=== PATIENT | male | born 1960 | race African-American/Black ===

== ENCOUNTER 2021-07-06 06:48 | Observation (INO) ==
[2021-07-06] MEDS ORDERED: DIAZEPAM 5 MG TABLET PO ONE (08:36)
[2021-07-06 08:49] LABS: Basophils % 0.5 % (0.0-0.8); Eosinophils # 0.1 10*3/uL (0.0-0.87); Eosinophils % 1.9 % (0.00-10.9); Hematocrit 35.5 VOL% (42.0-52.0); Hemoglobin 11.5 GM/DL (14.0-18.0); Immature Granulocytes % 0.3 %; Immature Granulocytes Absolute 0.02 #; Lymphocytes # 1.6 10*3/uL (1.4-4.0); Lymphocytes % 25.2 % (21.2-54.2); Mean Corpuscular HGB Conc 32.4 GM/DL (32-36); Mean Corpuscular Volume 89.9 FL (87-102); Monocytes % 7.7 % (1.7-12.7); Neutrophils % 64.4 % (38.7-73.9); Platelet Count 181 T/CUMM (130-400); Red Blood Count 3.95 MC/CUMM (3.8-5.5); Red Cell Distribution Width 13.8 % (9.3-17.3); White Blood Count 6.3 T/CUMM (4-12)
[2021-07-06] MEDS ORDERED: SODIUM CHLORIDE 0.45% 1,000 ML IV SCH (09:00)
[2021-07-06 09:07] LABS: PT Patient Result 11.3 SECS (10.5-12.0)
[2021-07-06 13:41] LABS: Basophils % 0.3 % (0.0-0.8); Eosinophils # 0.1 10*3/uL (0.0-0.87); Eosinophils % 0.6 % (0.00-10.9); Hematocrit 36.4 VOL% (42.0-52.0); Hemoglobin 11.9 GM/DL (14.0-18.0); Immature Granulocytes % 0.4 %; Immature Granulocytes Absolute 0.04 #; Lymphocytes # 1.6 10*3/uL (1.4-4.0); Lymphocytes % 15.6 % (21.2-54.2); Mean Corpuscular HGB Conc 32.7 GM/DL (32-36); Mean Corpuscular Volume 90.1 FL (87-102); Mean Platelet Volume 9.8 FL (9.6-12.0); Monocytes % 4.4 % (1.7-12.7); Neutrophils % 78.7 % (38.7-73.9); Platelet Count 186 T/CUMM (130-400); Red Blood Count 4.04 MC/CUMM (3.8-5.5); Red Cell Distribution Width 13.7 % (9.3-17.3)
[2021-07-06] MEDS ORDERED: LIDOCAINE 2% TOP JELLY 20 ML VIAL INTRAURETH ONE (14:55)
[2021-07-06] MEDS ORDERED: FLUTICASONE 50 MCG NASAL SPRAY 16 GM BOTTLE BOTH NARES PRN (14:56)
[2021-07-06 15:56] LABS: Alanine Aminotransferase 38 U/L (16-61); Alkaline Phosphatase 73 U/L (45-117); Aspartate Amino Transferase 40 U/L (0-37); Bilirubin,Total < 0.39 MG/DL (0.20-1.00); Blood Urea Nitrogen 21 MG/DL (7-18); Calcium 8.7 MG/DL (8.5-10.1); Carbon Dioxide 27 MMOL/L (21-32); Estimated Glom Filtration Rate 106 ML/MIN; Glucose 140 MG/DL (74-106); Osmolality,Calculated 281.5 MOS/KG (273-304); Potassium 3.9 MMOL/L (3.5-5.1); Sodium 139 MMOL/L (136-145); Total Protein 6.9 G/DL (6.4-8.2)
[2021-07-06] MEDS ORDERED: MEPERIDINE 50 MG/1 ML VIAL IM PRN (18:04)
[2021-07-06] MEDS: SODIUM CHLORIDE 0.45% 1,000 ML IV SCH (21:45)
[2021-07-06] MEDS: FLECAINIDE 50 MG TABLET PO SCH (21:45)
[2021-07-07] MEDS: CLOTRIMAZOLE/BETAMETHASONE CREAM 15 GM TUBE TOP SCH ×3 (01:00→20:58)
[2021-07-07 05:12] LABS: Basophils % 0.1 % (0.0-0.8); Eosinophils % 0.1 % (0.00-10.9); Hematocrit 32.7 VOL% (42.0-52.0); Hemoglobin 10.5 GM/DL (14.0-18.0); Immature Granulocytes % 0.2 %; Immature Granulocytes Absolute 0.02 #; Lymphocytes # 1.4 10*3/uL (1.4-4.0); Lymphocytes % 15.7 % (21.2-54.2); Mean Corpuscular HGB Conc 32.1 GM/DL (32-36); Mean Corpuscular Volume 89.6 FL (87-102); Mean Platelet Volume 10.5 FL (9.6-12.0); Monocytes % 7.1 % (1.7-12.7); Neutrophils % 76.8 % (38.7-73.9); Platelet Count 181 T/CUMM (130-400); Red Blood Count 3.65 MC/CUMM (3.8-5.5); Red Cell Distribution Width 13.7 % (9.3-17.3); White Blood Count 8.7 T/CUMM (4-12)
[2021-07-07 05:33] LABS: Risk Ratio 2.57
[2021-07-07] MEDS: SODIUM CHLORIDE 0.45% 1,000 ML IV SCH (06:22)
[2021-07-07] MEDS: hydroCHLOROthiazide 12.5 MG CAPSULE PO SCH (08:15)
[2021-07-07] MEDS: CHOLECALCIFEROL 5,000 UNIT TABLET PO SCH (08:15)
[2021-07-07] MEDS: ROSUVASTATIN 20 MG TABLET PO SCH (08:15)
[2021-07-07] MEDS: FLECAINIDE 50 MG TABLET PO SCH ×2 (08:16→20:55)
[2021-07-07] MEDS: COENZYME Q10 100 MG CAPSULE PO SCH (08:16)
[2021-07-07] MEDS: PANTOPRAZOLE 40 MG TABLET PO SCH (08:16)
[2021-07-07] MEDS: LOSARTAN 50 MG TABLET PO SCH (08:16)
[2021-07-07] MEDS: ALFUZOSIN 10 MG TABLET PO SCH (08:16)
[2021-07-07] MEDS: POTASSIUM CHLORIDE 20 MEQ TABLET PO SCH (08:17)
[2021-07-07] MEDS: allopurinoL 100 MG TABLET PO SCH (08:17)
[2021-07-07 08:48] LABS: Calcium 8.4 MG/DL (8.5-10.1); Osmolality,Calculated 286.3 MOS/KG (273-304); Potassium 3.8 MMOL/L (3.5-5.1)
[2021-07-07] MEDS ORDERED: carvediloL 6.25 MG TABLET PO SCH (09:00)
[2021-07-07] MEDS: carvediloL 6.25 MG TABLET PO SCH (17:31)
[2021-07-08 06:32] LABS: Basophils # 0.1 10*3/uL (0.0-0.2); Basophils % 0.7 % (0.0-0.8); Eosinophils # 0.1 10*3/uL (0.0-0.87); Eosinophils % 0.8 % (0.00-10.9); Hematocrit 33.1 VOL% (42.0-52.0); Hemoglobin 10.5 GM/DL (14.0-18.0); Immature Granulocytes % 0.4 %; Immature Granulocytes Absolute 0.03 #; Lymphocytes # 2.1 10*3/uL (1.4-4.0); Lymphocytes % 27.4 % (21.2-54.2); Mean Corpuscular HGB Conc 31.7 GM/DL (32-36); Mean Corpuscular Volume 90.7 FL (87-102); Mean Platelet Volume 10.8 FL (9.6-12.0); Monocytes % 6.9 % (1.7-12.7); Neutrophils % 63.8 % (38.7-73.9); Platelet Count 174 T/CUMM (130-400); Red Blood Count 3.65 MC/CUMM (3.8-5.5); Red Cell Distribution Width 13.8 % (9.3-17.3); White Blood Count 7.7 T/CUMM (4-12)
[2021-07-08 06:57] LABS: Calcium 8.4 MG/DL (8.5-10.1); Osmolality,Calculated 286.1 MOS/KG (273-304); Potassium 3.7 MMOL/L (3.5-5.1)
[2021-07-08] MEDS: allopurinoL 100 MG TABLET PO SCH (08:13)
[2021-07-08] MEDS: FLECAINIDE 50 MG TABLET PO SCH (08:13)
[2021-07-08] MEDS: ALFUZOSIN 10 MG TABLET PO SCH (08:13)
[2021-07-08] MEDS: PANTOPRAZOLE 40 MG TABLET PO SCH (08:13)
[2021-07-08] MEDS: hydroCHLOROthiazide 12.5 MG CAPSULE PO SCH (08:13)
[2021-07-08] MEDS: COENZYME Q10 100 MG CAPSULE PO SCH (08:13)
[2021-07-08] MEDS: ROSUVASTATIN 20 MG TABLET PO SCH (08:13)
[2021-07-08] MEDS: carvediloL 6.25 MG TABLET PO SCH (08:13)
[2021-07-08] MEDS: POTASSIUM CHLORIDE 20 MEQ TABLET PO SCH (08:14)
[2021-07-08] MEDS: CHOLECALCIFEROL 5,000 UNIT TABLET PO SCH (08:14)
[2021-07-08] MEDS: LOSARTAN 50 MG TABLET PO SCH (08:14)
[2021-07-08] MEDS: CLOTRIMAZOLE/BETAMETHASONE CREAM 15 GM TUBE TOP SCH (09:20)
[2021-07-08 12:36] VITALS: BP 156/89
== END 2021-07-08 13:55 | disposition home or self-care (01) ==
LOC: N.3E 06:48 → N.RAD 06:48 → N.SDSINP 06:50 → N.3E 14:22
PROVIDERS: ADMIT Urology; ATTEND Urology